=== PATIENT | male | born 1960 | race Caucasian/White ===

== ENCOUNTER 2017-02-25 07:50 | Day surgery (SDC) | payer BC ==
[2017-02-22 15:21] LABS: HEMATOCRIT 42.4 % (40.0-51.0); HEMOGLOBIN 14.1 g/dL (13.6-17.8)
[2017-02-22 15:25] LABS: BUN (BLOOD UREA NITROGEN) 21 MG/DL (6-23); CHLORIDE, SERUM 105 MMOL/L (96-112); CO2 (CARBON DIOXIDE) 30 MMOL/L (24-34); CREATININE 0.99 MG/DL (0.70-1.30); GFR AFRICAN AMERICAN 98 ML/MIN (>=60); GFR NON AFRICAN AMERICAN 85 ML/MIN (>=60); GLUCOSE, SERUM 97 MG/DL (60-99); POTASSIUM, SERUM 4.4 MMOL/L (3.5-5.3); SODIUM, SERUM 143 MMOL/L (135-148)
[~2017-02-25] VITALS: Ht 182.9 cm; Wt 82.8 kg
--- NOTE | ~2017-02-25 | OP ---
Record Of Operation [facility] [address] [place]. [address] NAME: SARMAD HORAN : 60 STATUS : [facility]#: [id number] AGE: 56 ADM/REG DATE : 02/25/17 MR#: [id number] REPORT SERV DATE: 03/01/17 DICTATED BY: RENE HODGE DATE: 02/28/17 REPORT STATUS : Draft TRANSCRIBED BY: MODL DATE: 02/28/17 DATE OF PROCEDURE: 02/25/2017 PREOPERATIVE DIAGNOSIS: Right inguinal hernia. POSTOPERATIVE DIAGNOSIS: Bilateral inguinal hernia. PROCEDURE: Laparoscopic reduction and mesh patch repair of bilateral inguinal hernia. DESCRIPTION OF OPERATIVE PROCEDURE: The patient was brought to operating suite, placed in supine position, underwent satisfactory general endotracheal anesthesia without incident. The skin of the abdomen was scrubbed, prepped, and draped in the usual sterile fashion, 0.5% Marcaine with epinephrine utilized as supplemental local anesthesia. Initially, an infraumbilical incision was performed dissecting through the skin and subcutaneous tissue of the umbilical fascia. The inferolateral retraction of the left exposed the medial aspect of the left anterior rectus sheath. This was incised longitudinally and the left rectus muscle was retracted exposing the left posterior rectus sheath. A preperitoneal dissection balloon was inserted posterior to the left rectus sheath to the level of pubic tubercle, it was insufflated under direct camera visualization, creating a preperitoneal dissection plane bilaterally. This balloon was then removed and replaced with a structural balloon and CO2 was insufflated into the preperitoneal space for pressure of 15 mmHg throughout the case. Two additional 5-mm trocars were established in the infraumbilical midline and then completion of preperitoneal dissection was performed bilaterally skeletonizing the Hesselbach triangle, the inferior epigastric vessels, and the internal ring. Two separately placed pieces of Bard 3DMax, size large, oriented left and right, were utilized. They were both placed under local anesthesia, rolled up, and placed in the preperitoneal space. Two pieces of mesh were unrolled over the inguinal canals bilaterally covering the Hesselbach triangle, the inferior epigastric vessels, and the internal ring. The cord structures were allowed to egress below the lower edge of the mesh. After plicating the mesh in position with multiple firings of the SorbaFix helical Tacker, the preperitoneal space was allowed to collapse and trocars removed. No muscular bleeding was noted. CO2 was milked from the preperitoneal space and the left anterior rectus sheath was closed with [id number] suture of 0 Vicryl, subcutaneous tissue closure with interrupted 4-0 Vicryl running subcuticular stitch, 4-0 Vicryl for the skin, and Dermabond skin adhesive placed. Record Of Operation [address] [place]. [address] NAME: SARMAD HORAN : 60 STATUS : [facility] PAT#: [id number] AGE: 56 ADM/REG DATE : 02/25/17 MR#: [id number] REPORT SERV DATE: 03/01/17 DICTATED BY: RENE HODGE DATE: 02/28/17 REPORT STATUS : Draft TRANSCRIBED BY: JEREMY DATE: 02/28/17 The patient tolerated the procedure well, was returned to PACU in stable condition. At the termination of the procedure, sponge, needle, lap, and instrument counts were correct x3. ESTIMATED BLOOD LOSS: Less than 5 to 10 mL. ROSSY/JEREMY Rene Hodge M.D. / [id number] CC: Kasandra Yi M.D.
[~2017-02-25 07:50] MED LIST: ASAB PO; LIPITOR20 PO; ZYRTEC-D ALG PO
== END 2017-02-25 15:23 | disposition home or self-care (01) ==
LOC: SDC 07:50 → MSC 09:15 → SDC 09:30 → MSC 09:30 → SDC 15:23 → MSC 03-03 07:45
PROVIDERS: Specialist
PROC: 0YUA4JZ Supplement Bilateral Inguinal Region with Synthetic Substitute, Percutaneous Endoscopic Approach (ICD-10-PCS; principal; 2017-02-25 09:30)
DX: K40.20 Bilateral inguinal hernia, without obstruction or gangrene, not specified as recurrent (principal); E78.5 Hyperlipidemia, unspecified; Z79.899 Other long term (current) drug therapy; Z90.89 Acquired absence of other organs
CPT/HCPCS: 80048; 85014; 85018; 93005; A9270-GY; C1726; C1727; C1781; J0690; J1885; J2250; J2405; J2710; J3010